=== PATIENT | male | born 1955 | race Caucasian/White ===

== ENCOUNTER 2022-12-16 14:27 | Outpatient (CLI) | payer MEDICARE, OTHER, SELFPAY ==
[2022-12-16 15:08] LABS: Hematocrit 35.3 % (42.0-52.0); Hemoglobin 12.3 g/dL (14.0-18.0)
[2022-12-16 15:18] LABS: Anion Gap 10 mmol/L (8-16); Blood Urea Nitrogen 16 mg/dL (9-20); Calcium 9.3 mg/dL (8.4-10.2); Carbon Dioxide 24 mmol/L (22-30); Chloride 108 mmol/L (98-107); Estimated Glomerular Filt Rate 55; Glucose 136 mg/dL (65-110); Potassium 4.2 mmol/L (3.4-5.0); Sodium 142 mmol/L (137-145)
== END 2022-12-16 14:28 | disposition home or self-care (01) ==
PROVIDERS: Anesthesiology; Visit Provider Urology
DX: R97.20 Elevated prostate specific antigen [PSA] (principal); E11.9 Type 2 diabetes mellitus without complications; D64.9 Anemia, unspecified; Z01.818 Encounter for other preprocedural examination
CPT/HCPCS: 36415; 80048; 85014; 85018; 87086

== ENCOUNTER 2022-12-24 01:13 | Day surgery (SDC) | payer MEDICARE, OTHER, SELFPAY ==
[2022-12-10 13:56] VITALS: BMI 29.2
--- NOTE | 2022-12-10 14:34 | PC.NURSE ---
Report to the Outpatient Waiting Room, entrance under the green pavilion located off [facility], at time _10:45AM on date _12/24/22 . Planned Procedure Time: _12:45PM . Time changes happen often and if your time is changed the preop area will call you the afternoon before. - You and your visitor will be asked to self-screen and do not enter if you have any COVID symptoms. - A mask is optional within the hospital at this time. Patients may have clear liquids (water, carbonated beverages, clear teas, apple juice) until 3 hours prior to surgery with a maximum of 20 ounces. - No food from midnight until time of surgery Take the following medications with a SIP of water the morning of surgery: ___CARVEDILOL, GABAPENTIN DO NOT STOP ANY OF YOUR OTHER PRESCRIPTION MEDICATIONS PRIOR TO SURGERY ?EXCEPT THE FOLLOWING Medications to discontinue per physician ___HOLD ELIQUIS 2 DAYS PRE-OP PER DR DAWN(PER PATIENT) Date to take last dose___12/21/22 Please no make-up, nail guyanese, hairspray, perfume, deodorant, or body powder the day of surgery. No jewelry (including any body piercings) or valuables the day of surgery, leave them at home. Please take a shower or bath the night before, or the morning of, surgery with an antibacterial soap. Wear comfortable, loose fitting clothing. Children are encouraged to wear pajamas. - Jewelry must be removed prior to entering the operating room. Rings and piercings that are not removed may be cut off. - The hospital will not accept responsibility for valuables. - Please leave all valuables, including medications, at home the day of surgery. If you are going home after surgery, a licensed carrier driver must drive you home. - NO public transportation without another adult if you receive anesthesia. - We recommend that an adult stay with you for 24 hours following discharge. - We also recommend that you do not drive, make important decision, drink alcoholic beverages, or take any drugs that were not prescribed by your health care provider for at least 24 hours after your discharge time. Follow any additional instructions given to you from your surgeon. If you or anyone in your household have experienced Covid symptoms in the past week, please notify your surgeon or the nurse liaison at the phone number below for possible testing. Telephone instructions given to ___PATIENT and asked if any additional questions and then verbalized understanding. Patient advised to call surgeon office or pre surgery nurse liaison [phone] if any additional questions.
--- NOTE | 2022-12-23 09:19 | WPDANESEPPF ---
Anes - Initial Pre Proc Eval Procedure: Operation Date: 12/24/22 09:00 Proposed Procedures p Trans Rectal Ultrasound Fusion Guided Prostate Biopsy - Jordan Dukes MD Date/Time: 12/23/22 09:19 Surgeon: Jordan Dukes MD Pre Op Diagnosis: elevated PSA Patient Data Age: 67 Gender: M Height: 1.83 m Weight: 98 kg Allergies Allergy/AdvReac Type Severity Reaction Status Date / Time No Known Allergies Allergy Unverified 12/24/22 07:13 Home Medications Medication Instructions Recorded Confirmed Type allopurinol 300 mg tablet 300 mg PO DAILY 12/10/22 12/24/22 History apixaban 5 mg tablet (Eliquis) 5 mg PO BID 12/10/22 12/24/22 History atorvastatin 40 mg tablet 40 mg PO DAILY 12/10/22 12/24/22 History carvedilol 3.125 mg tablet 3.125 mg PO BID 12/10/22 12/24/22 History ferrous sulfate 325 mg (65 mg 325 mg PO DAILY 12/10/22 12/24/22 History iron) tablet (Iron (ferrous sulfate)) gabapentin 600 mg tablet 1,200 mg PO BID 12/10/22 12/24/22 History glimepiride 2 mg tablet 1 mg PO QAM 12/10/22 12/24/22 History metformin 1,000 mg tablet 1,000 mg PO BID 12/10/22 12/24/22 History Patient hx anesthesia problems: none Family hx anesthesia problems: none Results Review: All pre-operative results and documents have been reviewed as part of the pre-operative evaluation. [facility] Past Medical History Medical History (Updated 12/23/22 @ 09:21 by Rich Morrissey DO) CAD (coronary artery disease) Diabetes type 2, controlled Hyperlipidemia Hypertension Surgical History Surgical History (Updated 12/23/22 @ 09:21 by Rich Morrissey DO) History of coronary artery bypass graft x 3 History of coronary artery stent placement x3 History of mitral valve replacement Social History Social History Smoking status: Never smoker Alcohol intake: current Substance use: never Living arrangements: with family Additional living arrangements comments: SON Spiritual care concerns: No Anes - Eval Final PreProcedure Day of Procedure 12/23/22 09:19 Patient weight: overweight Heart: regular rate and rhythm Lungs: clear to auscultation Airway: Mallampati scale class II Neurological: alert and oriented Last oral intake: >/= 8 hours ASA classification: III Emergent: no Anesthetic plan: proceed Anesthesia type and monitoring: general GIVS and standard monitoring Results Review: All pre-operative results and documents have been reviewed as part of the pre-operative evaluation. Informed Consent: The patient's anesthetic plan and its attendant risks and benefits were discussed with the patient/family/POA. Questions were solicited and answers provided to the satisfaction of the patient/family/POA.
[2022-12-24] VITALS (8 sets, daily range): BP systolic 106–159; BP diastolic 58–69; PULSE 50–56; RESP 12–20; TEMP 36.5; O2SAT 97–100
[2022-12-24] MEDS: LACTATED RINGERS 1,000 ML 30 ML IV CONT (07:20)
--- NOTE | 2022-12-24 07:26 | WPDHPUPDATE1 ---
History and Physical Update Update Date/Time: 12/24/22 07:26 History and Physical has been reviewed, including an updated exam of the patient. There are NO changes in the patient's condition. Risks, benefits, and alternatives have been discussed and questions answered. Patient agrees to proceed with procedure. Proceed with uronav us and prostate biopsy
[2022-12-24 07:37] LABS: Glucose Point of Care 191 mg/dl (65-105)
[2022-12-24] MEDS: ceFAZolin 2 GM/D5W 50 ML 2 GM/50 ML BAG IVPB (09:31)
--- NOTE | 2022-12-24 09:54 | W.PM.PROC2 ---
Procedure Note - Detailed Date of Procedure 12/24/22 Pre-op Diagnosis elevated PSA Post-op Diagnosis Same Procedure Performed Uronav us and prostate biopsy Surgeon Jordan Dukes MD Anesthesia General Description of Procedure Patient was taken to the operative suite correctly identified. Once anesthesia was obtained was placed in the decubitus position. Transrectal ultrasound probe was then inserted. The MRI image was fused onto the ultrasound image. The region of into his at the left apex was visualized in 3 cores were taken at this site. I then performed a standard 12 core biopsy. Patient tolerated procedure well without complications was taken recovery stable condition. This completes dictation. Please send a copy of this to my office Drains No Packing No Pathology Yes Complications No immediate complications Condition Stable Disposition PACU
[2022-12-24 10:08] LABS: Glucose Point of Care 192 mg/dl (65-105)
--- NOTE | 2022-12-24 11:25 | SUR.PHASEII ---
pt meets discharge criteria and is waiting for his son to pick him up.
--- NOTE | 2022-12-24 17:47 | SUR.PHASEII ---
pt was not in his room at 12:00pm and this nurse attempted to call pt's cell phone and pt son's cell phone both went to this nurse left both to call me back. reliability manager Alexia was informed at 1215 and also left for them to call us back. dr block was informed at 1230. pt called back at 1248 and informed us that he drove home even after being told that he can not/should not drive home. Pt said he got home safely. pt had his discharge instructions and IV was taken out prior to him eloping.
== END 2022-12-24 12:00 | disposition home or self-care (01) ==
PROVIDERS: Visit Provider Urology
PROC: (CPT 55700; principal; 2022-12-24 09:00)
DX: C61 Malignant neoplasm of prostate (principal); I25.10 Atherosclerotic heart disease of native coronary artery without angina pectoris; E11.9 Type 2 diabetes mellitus without complications; E78.5 Hyperlipidemia, unspecified; I10 Essential (primary) hypertension; Z95.5 Presence of coronary angioplasty implant and graft; Z95.1 Presence of aortocoronary bypass graft; Z95.4 Presence of other heart-valve replacement; Z79.01 Long term (current) use of anticoagulants; Z79.84 Long term (current) use of oral hypoglycemic drugs
CPT/HCPCS: 55700; 76872; 82948; 88342; G0416; J0690; J2250; J2405; J2704; J3010; J7120